=== PATIENT | female | born 1955 | race Caucasian/White ===

== ENCOUNTER 2020-12-12 09:12 | Outpatient (CLI) | payer MEDICARE, SELFPAY ==
--- NOTE | ~2020-12-12 | XR_ITS ---
EXAMINATION: XR sacrum coccyx min 2V INDICATION: Wound infection TECHNIQUE: Three views of the sacrum and coccyx are obtained. COMPARISON: None available FINDINGS: A neurostimulator device is implanted in the posterior subcutaneous tissues on the right. I ts lead appears to enter the pelvis at the level of S3 on the left. No definite soft tissue abnormali ty associated with the neurostimulator is identified although sensitivity of radiographs is low. Ther e is moderate lumbar spondylosis. There are 40 degrees of lumbar levoscoliosis. The bowel gas pattern is normal. There is mild osteoarthritis of the hips. IMPRESSION: 1. No acute findings identified. Reviewed, dictated and finalized at location B.
== END 2020-12-12 09:13 | disposition home or self-care (01) ==
LOC: ANHIMG 09:24
PROVIDERS: PCP Nurse Practitioner Family; Visit Provider Nurse Practitioner Family
DX: T14.8XXA Other injury of unspecified body region, initial encounter (principal)
CPT/HCPCS: 72220